=== PATIENT | female | born 1985 | race Caucasian/White ===

== ENCOUNTER 2021-02-06 09:00 | Inpatient (IN) | payer OTHER ==
[2021-02-10] MEDS: ELECTROLYTE-148 SOLN 1,000 ML IV SCH ×2 (08:45→09:45)
[2021-02-10 09:04] VITALS: BMI 32.4
[2021-02-10 09:41] LABS: BASO % 0.3 % (0-2.0); EOS % 0.9 % (0-4.5); HEMATOCRIT 35.1 % (32.4-45.2); LYMPH % 22.2 % (8-40); MCH 30.9 pg (25.7-33.7); MCHC 34.3 g/dl (32.0-36.0); MEAN CELL VOLUME 90.2 fl (80-96); MEAN PLT VOLUME 10.7 fl (7.5-11.1); MONO % 7.5 % (3.8-10.2); NEUT % 69.1 % (42.8-82.8); PLATELET COUNT 193 10^3/uL (134-434); RBC 3.89 M/mm3 (3.60-5.2); RDW 13.3 % (11.6-15.6); WHITE BLOOD COUNT 6.6 K/mm3 (4.0-10.0)
[2021-02-10 09:54] LABS: INR 0.95 (0.83-1.09); PROTHROMBIN TIME (PATIENT) 10.6 SEC (9.7-13.0)
[2021-02-10 10:01] LABS: BLOOD UREA NITROGEN 17.3 mg/dL (7-18); CALCIUM 8.7 mg/dL (8.5-10.1)
[2021-02-10 10:04] LABS: CREATININE 0.9 mg/dL (0.55-1.3)
[2021-02-10] MEDS ORDERED: morphine SULFATE/PF 1 MG/2 ML (2cc Syringe - QUVA) EP ONE (10:06)
[2021-02-10] MEDS ORDERED: ONDANSETRON 4 MG/2 ML VIAL IVPUSH PRN (10:06)
[2021-02-10] MEDS ORDERED: ceFAZolin SODIUM 1 GM VIAL ONE (10:12)
[2021-02-10] MEDS ORDERED: PHENYLEPHRINE HCL 10 MG/1 ML SINGLE DOSE VIAL ONE (10:46)
[2021-02-10] MEDS ORDERED: OXYTOCIN 10 UNITS/ML VIAL ONE ×3 (11:04→11:30)
[2021-02-10 11:12] LABS: SYPHILIS W/ RPR CONF NON-REACTIVE (NONREACTIVE)
[2021-02-10] MEDS ORDERED: MIDAZOLAM HCL 2 MG/2 ML SINGLE DOSE VIAL ONE (11:17)
[2021-02-10 11:40] LABS: HIV INTERPRETATION NEGATIVE (NEGATIVE)
[2021-02-10] MEDS ORDERED: CITRIC ACID/SODIUM CITRATE 30 ML UNIT-DOSE CUP PO ONE (11:47)
[2021-02-10] MEDS ORDERED: IBUPROFEN 800 MG/8 ML IJ IVPB PRN (12:06)
[2021-02-10] MEDS ORDERED: SENNOSIDES/DOCUSATE COMBO (SENNA PLUS) TABLET (UD) PO PRN (12:06)
[2021-02-10] MEDS ORDERED: IBUPROFEN 600 MG TABLET (FP) PO PRN (12:06)
[2021-02-10] MEDS ORDERED: ONDANSETRON 4 MG/2 ML VIAL IVPB PRN (12:06)
[2021-02-10] MEDS ORDERED: OXYTOCIN 20 UNITS in 0.9% NS 20 UNIT/1,000 ML INFUS.BAG IV SCH (12:15)
[2021-02-10] MEDS: ACETAMINOPHEN 1000 MG/100 ML VIAL IVPB PRN (12:42)
[2021-02-10] MEDS ORDERED: ACETAMINOPHEN INJECTION 100 ML IVPB ONE (12:44)
[2021-02-10] MEDS ORDERED: OXYTOCIN 20 UNITS in 0.9% NS 20 UNIT/1,000 ML INFUS.BAG IV ONE (13:01)
[2021-02-10 13:13] LABS: CORD BASE EXCESS -4.6 mmol/L (0-2); CORD HCO3 22.4 mmHg (20-29); CORD PCO2 48.6 mmHg (30-78); CORD pH 7.282 (7.14-7.44)
[2021-02-10 13:16] LABS: CORD BASE EXCESS -4.4 mmol/L (0-2); CORD HCO3 20.3 mmHg (20-29); CORD PCO2 36.3 mmHg (30-78); CORD pH 7.365 (7.14-7.44)
[2021-02-11] MEDS: ACETAMINOPHEN 1000 MG/100 ML VIAL IVPB PRN (01:46)
[2021-02-11 06:59] LABS: BASO % 0.2 % (0-2.0); EOS % 0.8 % (0-4.5); HEMATOCRIT 29.9 % (32.4-45.2); HEMOGLOBIN 10.2 GM/dL (10.7-15.3); LYMPH % 23.7 % (8-40); MCH 30.5 pg (25.7-33.7); MCHC 34.2 g/dl (32.0-36.0); MEAN CELL VOLUME 89.3 fl (80-96); MEAN PLT VOLUME 10.3 fl (7.5-11.1); MONO % 6.9 % (3.8-10.2); NEUT % 68.4 % (42.8-82.8); PLATELET COUNT 158 10^3/uL (134-434); RBC 3.35 M/mm3 (3.60-5.2); RDW 13.3 % (11.6-15.6); WHITE BLOOD COUNT 7.8 K/mm3 (4.0-10.0)
[2021-02-11] MEDS: PRENATAL VITAMINS W/ FOLIC ACID TABLET (FP) PO SCH (09:56)
[2021-02-11] MEDS ORDERED: ACETAMINOPHEN 325 MG TABLET (FP) PO PRN (12:06)
[2021-02-11] MEDS ORDERED: BISACODYL 10 MG SUPP.RECT RC PRN (12:06)
[2021-02-11] MEDS: oxyCODONE HCL 5 MG TABLET PO PRN (15:55)
[2021-02-11] MEDS: SIMETHICONE 80 MG TAB.CHEW (FP) PO PRN (15:56)
[2021-02-11 21:40] VITALS: TEMP 98.1
[2021-02-12] MEDS: oxyCODONE HCL 5 MG TABLET PO PRN (02:49)
[2021-02-12] MEDS: SIMETHICONE 80 MG TAB.CHEW (FP) PO PRN ×2 (02:49→09:45)
[2021-02-12] MEDS: PRENATAL VITAMINS W/ FOLIC ACID TABLET (FP) PO SCH (09:45)
[2021-02-12 11:24] VITALS: BP 105/69; PULSE 82
== END 2021-02-12 13:25 | disposition home or self-care (01) | DRG 540 ==
LOC: JLDR 02-10 08:00 → J3W 02-10 13:23
PROVIDERS: ADMIT Family Medicine; ATTEND Family Medicine
PROC: 10D00Z1 Extraction of Products of Conception, Low, Open Approach (ICD-10-PCS; principal; 2021-02-10)
DX: O34.211 Maternal care for low transverse scar from previous cesarean delivery (principal); N85.8 Other specified noninflammatory disorders of uterus; Z3A.39 39 weeks gestation of pregnancy; Z37.0 Single live birth
CPT/HCPCS: 36415; 36600; 80048; 82803; 85025; 85610; 85730; 86780; 86850; 86900; 86901; 87389; J0131

== ENCOUNTER 2024-06-05 08:50 | Inpatient (IN) | payer OTHER ==
[2024-06-05 10:01] VITALS: BMI 32.5
[2024-06-05 10:18] LABS: ABSOLUTE IMMATURE GRANULOCYTES 0.06 x10^3/uL (0.0-0.031); BASOPHILS # 0.02 x10^3/uL (0.01-0.08); EOSINOPHIL % 0.7 % (0.7-5.8); EOSINOPHILS # 0.04 x10^3/uL (0.04-0.36); HEMATOCRIT 36.4 % (34.1-44.9); HEMOGLOBIN 12.2 g/dL (11.2-15.7); MCHC 33.5 g/dl (32.2-35.5); MEAN CELL VOLUME 89.2 fl (79.4-94.8); MEAN PLT VOLUME 11.7 fl (9.4-12.3); MONOCYTE # 0.35 x10^3/uL (0.24-0.86); MONOCYTE % 6.3 % (4.7-12.5); PLATELET COUNT 223 x10^3/uL (182-369); RDW 13.1 % (12.1-16.8)
[2024-06-05 10:25] LABS: INR 0.99 (0.83-1.09); PROTHROMBIN TIME (PATIENT) 10.9 SEC (9.7-13.0)
[2024-06-05 10:47] LABS: POTASSIUM 3.8 mmol/L (3.5-5.1)
[2024-06-05 10:48] LABS: BLOOD UREA NITROGEN 13.8 mg/dL (7-18)
[2024-06-05 10:52] LABS: CREATININE 0.7 mg/dL (0.55-1.3)
[2024-06-05] MEDS ORDERED: morphine SULFATE/PF 1 MG/2 ML (2cc Syringe - QUVA) ONE (11:49)
[2024-06-05] MEDS ORDERED: FENTANYL CITRATE/PF 50 MCG/ML VIAL ONE (11:49)
[2024-06-05] MEDS ORDERED: BUPIVACAINE HCL/PF 0.5% (5MG/ML) 10 ML VIAL ONE (11:52)
[2024-06-05] MEDS ORDERED: OXYTOCIN 30 UNITS in 0.9% NS 30 UNIT/500 ML INFUS.BAG IVPB ONE (11:52)
[2024-06-05 11:55] LABS: HIV INTERPRETATION NEGATIVE (NEGATIVE)
[2024-06-05] MEDS ORDERED: LIGASURE IMPACT TP ONE (12:01)
[2024-06-05 14:11] LABS: CORD BASE EXCESS -4.7 mmol/L (0-2); CORD HCO3 20.5 mmHg (20-29); CORD PCO2 38.4 mmHg (30-78); CORD pH 7.345 (7.14-7.44)
[2024-06-05 14:13] LABS: CORD BASE EXCESS -3.5 mmol/L (0-2); CORD HCO3 22.9 mmHg (20-29); CORD PCO2 46.2 mmHg (30-78); CORD pH 7.314 (7.14-7.44)
[2024-06-05] MEDS ORDERED: oxyCODONE HCL 5 MG TABLET PO PRN (14:15)
[2024-06-05] MEDS ORDERED: ONDANSETRON 4 MG/2 ML VIAL IVPB PRN (14:15)
[2024-06-05] MEDS ORDERED: OXYTOCIN 20 UNITS in 0.9% NS 20 UNIT/1,000 ML INFUS.BAG IV ONE (14:33)
[2024-06-05] MEDS ORDERED: IBUPROFEN (CALDOLOR) 800 MG/200 ML PREMIX BAGS IVPB ONE (15:03)
[2024-06-05] MEDS: IBUPROFEN (CALDOLOR) 800 MG/200 ML PREMIX BAGS IVPB PRN (15:06)
[2024-06-05] MEDS: OXYTOCIN 20 UNITS in 0.9% NS 20 UNIT/1,000 ML INFUS.BAG IV SCH (21:16)
[2024-06-05] MEDS: SIMETHICONE 80 MG TAB.CHEW (FP) PO PRN (21:33)
[2024-06-05] MEDS: SENNOSIDES/DOCUSATE COMBO (SENNA PLUS) TABLET (UD) PO SCH (21:33)
[2024-06-05] MEDS: ACETAMINOPHEN 1000 MG/100 ML BAG IVPB PRN (23:33)
[2024-06-06] MEDS: LACTATED RINGERS SOLUTION 1,000 ML IV SCH (00:04)
[2024-06-06] MEDS: LACTATED RINGERS SOLUTION 500 ML IV ONE (00:04)
[2024-06-06 06:57] LABS: ABSOLUTE IMMATURE GRANULOCYTES 0.03 x10^3/uL (0.0-0.031); BASOPHILS # 0.02 x10^3/uL (0.01-0.08); EOSINOPHIL % 0.8 % (0.7-5.8); EOSINOPHILS # 0.05 x10^3/uL (0.04-0.36); HEMATOCRIT 26.2 % (34.1-44.9); HEMOGLOBIN 8.7 g/dL (11.2-15.7); MCHC 33.2 g/dl (32.2-35.5); MEAN CELL VOLUME 91.9 fl (79.4-94.8); MEAN PLT VOLUME 11.5 fl (9.4-12.3); MONOCYTE # 0.47 x10^3/uL (0.24-0.86); MONOCYTE % 7.1 % (4.7-12.5); PLATELET COUNT 161 x10^3/uL (182-369); RDW 13.2 % (12.1-16.8)
[2024-06-06] MEDS: PRENATAL VITAMINS W/ FOLIC ACID TABLET (FP) PO SCH (09:26)
[2024-06-06] MEDS: FERROUS SO4 325 MG TABLET (FP) PO SCH (13:19)
[2024-06-06] MEDS: IBUPROFEN 600 MG TABLET (FP) PO PRN (13:20)
[2024-06-06] MEDS ORDERED: BISACODYL 10 MG SUPP.RECT RC PRN (14:15)
[2024-06-06] MEDS ORDERED: ACETAMINOPHEN 325 MG TABLET (FP) PO PRN (14:15)
[2024-06-06 15:20] VITALS: RESP 18
[2024-06-07 12:29] VITALS: BP 107/59; PULSE 88; TEMP 98.3
== END 2024-06-07 17:49 | disposition home or self-care (01) | DRG 540 ==
LOC: JLDR 08:50 → J3W 16:37
PROVIDERS: ADMIT Family Medicine; ATTEND Family Medicine
PROC: 10D00Z1 Extraction of Products of Conception, Low, Open Approach (ICD-10-PCS; principal; 2024-06-05)
PROC: 0UB70ZZ Excision of Bilateral Fallopian Tubes, Open Approach (ICD-10-PCS; 2024-06-05)
DX: O34.211 Maternal care for low transverse scar from previous cesarean delivery (principal); N85.8 Other specified noninflammatory disorders of uterus; Z3A.39 39 weeks gestation of pregnancy; Z37.0 Single live birth; Z30.2 Encounter for sterilization
CPT/HCPCS: 36415; 36600; 59409; 80048; 82803; 85025; 85610; 85730; 86780; 86850; 86900; 86901; 87389; 88305-TC; 88307-TC; J0131